=== PATIENT | male | born 1995 | race Two or more races ===

== ENCOUNTER 2019-01-13 18:32 | Emergency (ER) | payer MEDICAID ==
[~2019-01-13] VITALS: Ht 193 cm; Wt 70.3 kg
--- NOTE | 2019-01-13 18:45 | NUR ---
CAME IN FOR STABBING LIKE LEFT SIDED CHEST PAIN, NON RADIATING, COUGH X 5 DAYS. TO ER BED 10,HOOKED TO MONITOR, CHANGED TO GOWN, PROVIDED W WARM BLANKET, AWAITING MD JAMIL.
--- NOTE | 2019-01-13 19:02 | NUR ---
DR ROMAN AT BEDSIDE.
[2019-01-13] MEDS ORDERED: IBUPROFEN 600 MG TABLET PO ONE ×2 (19:08→19:30)
--- NOTE | 2019-01-13 19:08 | NUR ---
RECEIVED VERBAL ORDER OF MOTRIN 600MG PO. CARRIED OUT
--- NOTE | 2019-01-13 19:20 | NUR ---
RECEIVED REPORT FROM RANDY AMEQZUITA FOR LAXMI.
--- NOTE | 2019-01-13 19:24 | NUR ---
MEDICAL AFFAIRS LEADER AT BEDSIDE FOR XRAY.
--- NOTE | 2019-01-13 19:26 | NUR ---
REPORT GIVEN TO KARMA SARAVIA RN FOR LAXMI
[2019-01-13 19:42] LABS: BASOPHILS % (AUTO) 0.3 % (0.0-2.0); EOSINOPHILS % (AUTO) 0.6 % (0.0-6.0); HEMATOCRIT 39 % (39-51); HEMOGLOBIN 12.6 g/dL (13.5-17.5); LYMPHOCYTES % (AUTO) 9.5 % (20.0-44.0); MEAN CORPUSCULAR HGB CONC 33 g/dl (31.0-36.0); MEAN CORPUSCULAR VOLUME 86 fL (80-96); MONOCYTES # (AUTO) 0.6 /CMM (0.1-1.30); MONOCYTES % (AUTO) 5.8 % (2.0-12.0); NEUTROPHILS % (AUTO) 83.8 % (43.0-81.0); PLATELET COUNT (AUTO) 271 /CMM (150-450); WHITE BLOOD COUNT (AUTO) 10.7 K/uL (4.3-11.0)
[2019-01-13 20:00] LABS: ALANINE AMINOTRANSFERASE 14 U/L (12-78); ALBUMIN 3.7 g/dL (3.4-5.0); ALKALINE PHOSPHATASE 64 U/L (46-116); ASPARTATE AMINOTRANSFERASE 11 U/L (15-37); BILIRUBIN,DIRECT 0.1 mg/dL (0.0-0.2); BILIRUBIN,TOTAL 0.5 mg/dL (0.2-1.0); CALCIUM, SERUM 8.9 mg/dL (8.5-10.1); CARBON DIOXIDE 30 mmol/L (21-32); CHLORIDE 104 mmol/L (98-107); CREATININE 0.8 mg/dL (0.6-1.3); GLUCOSE 88 mg/dL (74-106); POTASSIUM 4.3 mmol/L (3.5-5.1); SODIUM SERUM 143 mmol/L (136-145); TOTAL PROTEIN, SERUM 7.5 g/dL (6.4-8.2); UREA NITROGEN, BLOOD 7 mg/dL (7-18)
--- NOTE | 2019-01-13 21:05 | NUR ---
IV LINE ESTABLISHED.
[2019-01-13] MEDS ORDERED: IOHEXOL-300 100 ML VIAL IV ONE (21:24)
[2019-01-13] MEDS ORDERED: IV NS 0.9% 250 ML IV ONE (21:24)
[2019-01-13] MEDS ORDERED: CT SWABBABLE VALVE TRANS SET 1 EA INFUS.SET MC ONE (21:24)
--- NOTE | 2019-01-13 21:41 | NUR ---
PT IS BACK FROM CT SCAN.
[2019-01-13 22:39] VITALS: BP 112/58
--- NOTE | 2019-01-13 23:14 | NUR ---
IV removed. Catheter intact and site benign. Pressure and 4x4 applied to site. No bleeding noted. Patient discharged to home in stable condition. Written and verbal after care instructions given. Patient verbalizes understanding of instruction.
== END 2019-01-13 23:24 | disposition home or self-care (01) ==
LOC: ER 18:36
DX: J18.9 Pneumonia, unspecified organism (principal); J45.909 Unspecified asthma, uncomplicated; M94.0 Chondrocostal junction syndrome [Tietze]; Z88.6 Allergy status to analgesic agent; Z60.2 Problems related to living alone
CPT/HCPCS: 36415; 71045; 71260; 80048; 80076; 84484; 85025; 85378; 93005; 99284; J7050; Q9967